=== PATIENT | male | born 1955 | race Caucasian/White ===

== ENCOUNTER 2024-10-21 17:24 | Inpatient (IN) | payer MEDICARE ==
[2024-10-21] MEDS ORDERED: CEFAZOLIN 2 GM VIAL ONE (17:33)
[2024-10-21] MEDS ORDERED: Boostrix 0.5 ML (Tdap) VIAL (>/=7 yrs of age) ONE (17:34)
[2024-10-21] MEDS ORDERED: Acetaminophen 325 MG TAB PO PRN (17:47)
[2024-10-21] MEDS ORDERED: Ondansetron PF 4 MG/2 ML Vial IVP PRN (17:47)
[2024-10-21] MEDS ORDERED: Glucagon 1 MG/ML KIT IM PRN (17:47)
[2024-10-21] MEDS ORDERED: Dextrose 50% Abboject 50 ML SYRINGE SLOW IVP PRN (17:47)
[2024-10-21] MEDS ORDERED: fentaNYL PF 100 MCG/2 ML SYRINGE ONE (18:53)
[2024-10-21 19:04] LABS: #Basophils 0.07 10x3/uL (0.0-0.2); #Eosinophils 0.38 10x3/uL (0.0-0.7); #Monocytes 1.02 10x3/uL (0.11-0.59); #Neutrophils 5.09 10x3/uL (1.40-6.50); %Basophils 0.6 % (0.0-1.0); %Eosinophils 3.4 % (0.0-10.0); %Lymphocytes 41.3 % (21.0-51.0); %Monocytes 9.1 % (0.0-10.0); %Neutrophils 45.3 % (42.0-75.0); Hematocrit 41.7 % (42.0-52.0); Hemoglobin 14.0 g/dL (14.0-18.0); Mean Corpuscular Hemoglobin 29.1 pg (27.0-31.0); Mean Corpuscular Volume 86.7 fL (78.0-98.0); Platelet Count 242 10x3/uL (130-400); Red Blood Cell (RBC) Count 4.81 mill/uL (4.70-6.10); White Blood Cell (WBC) Count 11.23 10x3/uL (4.8-10.8)
[2024-10-21 19:25] LABS: Platelet Adequacy Comment Platelets Normal; RBC Morphology Within Normal Limits
[2024-10-21] MEDS ORDERED: Ondansetron PF 4 MG/2 ML Vial ONE (19:34)
[2024-10-21 19:39] LABS: Actual Bicarbonate (HCO3v) 23.6 mEq/L (22-28); Base Excess -0.8 mEq/L (-2.0 to +3.0); Calcium, Ionized (venous) 1.10 mmol/L (1.16-1.32); Chloride (VBG) 101 mmol/L (98-106); Hematocrit-VBG 46 % (42.0-52.0); Hemoglobin (Hb) 15.6 g/dL (12.6-17.4); Potassium (VBG) 4.54 mmol/L (3.70-5.30); Sodium 137 mmol/L (133-146)
[2024-10-21 19:57] LABS: ALT (SGPT) 53 U/L (Less than 45); AST (SGOT) 41 U/L (11-34); Albumin 4.2 g/dL (3.1-4.5); Alkaline Phosphatase 61 U/L (40-110); Anion Gap 16 mmol/L (10-20); BUN (Urea Nitrogen) 11 mg/dL (8.4-25.7); Bilirubin, Total 0.2 mg/dL (0.3-1.2); Calc. Creatinine Clearance 0 mL/min (70-130); Calcium 8.9 mg/dL (7.8-10.44); Carbon Dioxide 21 mmol/L (23-31); Chloride 103 mmol/L (98-107); Globulin 3.7 g/dL (2.4-3.5); Glucose 109 mg/dL (80-115); Potassium 4.5 mmol/L (3.5-5.1); Sodium 135 mmol/L (136-145)
[2024-10-21] MEDS ORDERED: PHENYLEPHRINE-NS 100 MCG/ML 10 ML SYRINGE ONE (20:05)
[2024-10-21] MEDS ORDERED: HYDROmorphone 0.5 MG/0.5 ML SYR SLOW IVP PRN (20:33)
[2024-10-21] MEDS: oxyCODONE 5 MG TAB PO PRN (22:39)
[2024-10-21 22:44] VITALS: BMI 36.6
[2024-10-21] MEDS: Ketorolac Tromethamine 30 MG (1 mL) VIAL IVP SCH (23:41)
[2024-10-21] MEDS: Acetaminophen 325 MG TAB PO SCH (23:41)
[2024-10-22 04:38] VITALS: TEMP 97.8
[2024-10-22 05:55] LABS: #Basophils Less than 0.03 10x3/uL (0.0-0.2); #Eosinophils Less than 0.03 10x3/uL (0.0-0.7); #Monocytes 1.45 10x3/uL (0.11-0.59); #Neutrophils 12.24 10x3/uL (1.40-6.50); %Basophils 0.1 % (0.0-1.0); %Eosinophils 0.1 % (0.0-10.0); %Lymphocytes 14.8 % (21.0-51.0); %Monocytes 9.0 % (0.0-10.0); %Neutrophils 75.5 % (42.0-75.0); Hematocrit 40.6 % (42.0-52.0); Hemoglobin 13.5 g/dL (14.0-18.0); Mean Corpuscular Hemoglobin 28.7 pg (27.0-31.0); Mean Corpuscular Volume 86.4 fL (78.0-98.0); Platelet Count 246 10x3/uL (130-400); Red Blood Cell (RBC) Count 4.70 mill/uL (4.70-6.10); White Blood Cell (WBC) Count 16.19 10x3/uL (4.8-10.8)
[2024-10-22 06:15] LABS: Anion Gap 14 mmol/L (10-20); BUN (Urea Nitrogen) 13 mg/dL (8.4-25.7); Calc. Creatinine Clearance 143 mL/min (70-130); Calcium 8.4 mg/dL (7.8-10.44); Carbon Dioxide 24 mmol/L (23-31); Chloride 103 mmol/L (98-107); Glucose 146 mg/dL (80-115); Potassium 4.5 mmol/L (3.5-5.1); Sodium 136 mmol/L (136-145)
[2024-10-22] MEDS ORDERED: Glucagon 1 MG/ML KIT IM PRN (07:35)
[2024-10-22] MEDS ORDERED: Dextrose 50% Abboject 50 ML SYRINGE SLOW IVP PRN (07:35)
[2024-10-22] MEDS: Ezetimibe 10 MG TAB PO SCH (09:58)
[2024-10-22] MEDS: metFORMIN 500 MG TAB PO SCH (09:58)
[2024-10-22] MEDS: Metoprolol Succinate XL 25 MG ER.TAB PO SCH (09:58)
[2024-10-22] MEDS: Losartan 25 MG TAB PO SCH (09:59)
[2024-10-22 11:35] VITALS: BP 163/75
[2024-10-22] MEDS ORDERED: Aspirin 81 mg Enteric Coated Tablet PO SCH (21:00)
[2024-10-23] MEDS ORDERED: Metoprolol Succinate XL 50 MG ER.TAB PO SCH (09:00)
== END 2024-10-22 14:18 | disposition home or self-care (01) | DRG 494 ==
LOC: EDBD 17:24 → ERS 17:24 → SDC/OP 19:49 → T4-B 22:30
PROVIDERS: ADMIT Colon & Rectal Surgery; ATTEND Colon & Rectal Surgery
PROC: 0QSK04Z Reposition Left Fibula with Internal Fixation Device, Open Approach (ICD-10-PCS; principal; 2024-10-21)
PROC: 3E03329 Introduction of Other Anti-infective into Peripheral Vein, Percutaneous Approach (ICD-10-PCS; 2024-10-21)
DX: S82.842B Displaced bimalleolar fracture of left lower leg, initial encounter for open fracture type I or II (principal); E11.9 Type 2 diabetes mellitus without complications; I10 Essential (primary) hypertension; E78.5 Hyperlipidemia, unspecified; Z79.84 Long term (current) use of oral hypoglycemic drugs; Z79.899 Other long term (current) drug therapy
CPT/HCPCS: 27788; 36415; 36416; 71045; 80048; 80053; 82805; 85025; 86850; 86900; 86901; 90471; 90715; 96374; 96375; C1713; G0390; J1100; J1885; J2250; J2405; J3010; J7030